=== PATIENT | female | born 1930 | race African-American/Black ===

== ENCOUNTER 2019-12-21 17:01 | Emergency (ER) | payer MEDICARE, BC ==
[~2019-12-21] VITALS: Ht 175.3 cm; Wt 0.5 kg
[2019-12-21] MEDS ORDERED: LIDOCAINE 1%/EPI 1:100,000 10 ML VIAL IJ ONE (18:30)
[2019-12-21] MEDS ORDERED: BACITRACIN ZINC OINT UDPKT TOP ONE (18:30)
[2019-12-21] MEDS ORDERED: TETANUS, DIPHTHERIA, PERTUSSIS VAC/PF 0.5ML (>7YR OLD) IM ONE (18:30)
[2019-12-21] MEDS ORDERED: LIDOCAINE HCL/EPINEPHRINE 1%-EPI 1:100,000 20 ML VIAL INFIL NR (19:00)
[2019-12-21 21:50] VITALS: BP 157/79
== END 2019-12-21 21:55 | disposition home or self-care (01) ==
LOC: ER 17:01
DX: S01.81XA Laceration without foreign body of other part of head, initial encounter (principal); S61.411A Laceration without foreign body of right hand, initial encounter; E11.9 Type 2 diabetes mellitus without complications; I10 Essential (primary) hypertension; W01.0XXA Fall on same level from slipping, tripping and stumbling without subsequent striking against object, initial encounter; Y93.89 Activity, other specified; Y92.018 Other place in single-family (private) house as the place of occurrence of the external cause
CPT/HCPCS: 12002; 12011; 70450; 73130; 90471; 90715; 93005; 99285; J3490